=== PATIENT | male | born 1950 | race Caucasian/White ===

== ENCOUNTER → 2016-12-21 | Outpatient (CLI) | payer MEDICARE, OTHER | LOC: RAD 11:10 | PROVIDERS: ATTEND Family Medicine | DX: R29.898 Other symptoms and signs involving the musculoskeletal system (principal) | CPT/HCPCS: 72148 ==

== ENCOUNTER 2018-04-16 09:19 | Day surgery (SDC) | payer MEDICARE, OTHER ==
[~2018-04-16 09:19] MED LIST: BESIFLOXACIN HCL 0.6% OPH SUSP 5 ML BOTTLE OD PRN; CYCLOPENTOLATE 0.2%/PHENYLEPHRINE 1% OPH SOLN 2 ML OD PRN; KETOROLAC TROMETHAMINE 0.45% 4 DROP/0.4 ML DROPERETTE OD PRN; TETRACAINE HCL 0.5% OPH SOLN 2 ML OD PRN; TROPICAMIDE 1% OPH SOLN 3 ML OD PRN
[2018-04-16] MEDS ORDERED: CHONDR SU A NA/HYALUR INTRAOC KIT (SURGICARE) ONE (09:43)
[2018-04-16] MEDS ORDERED: LIDOCAINE 1% INJ-PF (10 MG/ML) 30 ML SDV ONE (09:43)
[2018-04-16] MEDS ORDERED: EPINEPHRINE INJ/PF 1 MG/1 ML AMPULE ONE (09:43)
[2018-04-16] MEDS: TETRACAINE HCL 0.5% OPH SOLN 2 ML OD PRN ×2 (10:28→11:06)
[2018-04-16] MEDS: CYCLOPENTOLATE 0.2%/PHENYLEPHRINE 1% OPH SOLN 2 ML OD PRN ×3 (10:29→11:00)
[2018-04-16] MEDS: TROPICAMIDE 1% OPH SOLN 3 ML OD PRN ×3 (10:29→11:00)
[2018-04-16] MEDS: BESIFLOXACIN HCL 0.6% OPH SUSP 5 ML BOTTLE OD PRN ×2 (10:30→10:45)
[2018-04-16] MEDS ORDERED: MIDAZOLAM 2 MG/2 ML INJ ONE ×2 (10:51)
[2018-04-16] MEDS ORDERED: LIDOCAINE 1%/PHENYLEPHRINE 1.5% 1 ML VIAL ONE (11:19)
--- NOTE | 2018-04-16 14:46 | [facility] OPERATIVE REPORT E ---
[facility] Operative Report NAME: MELE GARCIA AGE: 68Y DATE OF SURGERY: 04/16/2018 ROOM: PREOPERATIVE DIAGNOSIS: CATARACT, RIGHT EYE. POSTOPERATIVE DIAGNOSIS: CATARACT, RIGHT EYE. OPERATION: Cataract extraction with insertion of an IOL of the right eye. SURGEON: NIEVES WOODSON M.D. ANESTHESIA: Topical. PROCEDURE: After obtaining appropriate consent, the patient's right eye was prepped and draped in sterile fashion as well as the surgeon in a sterile manner and cataract surgery was started. First a paracentesis blade was used to make a side-port incision. Viscoelastic was used to inflate the anterior chamber. Next a 2.4 mm incision was made with a 2.4 mm blade, clear corneal temporally. A continuous capsulorrhexis was made using a cystotome and Utrata forceps. Following this hydrodissection was carried out to make the lens fully loose and mobile and it was rotated 90 degrees. Following this, a swmebp-krc-zqkbszf technique was used to phacoemulsify the lens with a CDE of 6.75. The remaining cortex was removed with irrigation/aspiration. Provisc was instilled into the capsular bag to inflate the bag. A SN60WF, 20.0 diopter lens was placed. The remaining viscoelastic material was removed with irrigation/aspiration. Following this, the incision was found to be watertight. Besivance was instilled into the eye and a protective shield was placed over the eye. The patient returned to the postoperative recovery in stable condition. DICTATING PHYSICIAN: NIEVES WOODSON M.D. [id number] PHY#: [id number] ID: [id number] JOB#: [id number] ACCT: [id number] cc:NIEVES WOODSON M.D. >
--- NOTE | 2018-04-16 14:48 | [facility] DISCHARGE SUMMARY E ---
[facility] Discharge Summary NAME: MELE GARCIA AGE: 68Y ADMITTED: 04/16/2018 DISCHARGED: 04/16/2018 FINAL DIAGNOSIS: Cataract, right eye. HOSPITAL COURSE: This is a 68-year-old male who underwent cataract extraction of the right eye. He underwent surgery because he was having difficulty seeing small print. DISCHARGE INSTRUCTIONS: He should be on a regular diet. No bending at his waist, no heavy lifting. He should use Besivance, Ilevro and Durezol at 3:00 p.m. and 8:00 p.m. Sleep with a rigid shield. I will see him for a 1-day postoperative tomorrow. DICTATING PHYSICIAN: NIEVES WOODSON M.D. [id number] PHY#: [id number] ID: [id number] JOB#: [id number] ACCT: [id number] cc:NIEVES WOODSON M.D. >
== END 2018-04-16 12:03 | disposition home or self-care (01) ==
LOC: SC 09:19
PROVIDERS: ATTEND Internal Medicine
DX: H25.13 Age-related nuclear cataract, bilateral (principal); H57.03 Miosis; I10 Essential (primary) hypertension; M19.90 Unspecified osteoarthritis, unspecified site; K21.9 Gastro-esophageal reflux disease without esophagitis; G47.30 Sleep apnea, unspecified; Z79.1 Long term (current) use of non-steroidal anti-inflammatories (NSAID); Z79.899 Other long term (current) drug therapy
CPT/HCPCS: 66984; V2632; J2250; J3490; A9270; J0171; J2370; 142

== ENCOUNTER 2018-05-16 07:10 | Day surgery (SDC) | payer MEDICARE, OTHER ==
[~2018-05-16 07:10] MED LIST changes: -BESIFLOXACIN HCL 0.6% OPH SUSP 5 ML BOTTLE OD PRN; -CYCLOPENTOLATE 0.2%/PHENYLEPHRINE 1% OPH SOLN 2 ML OD PRN; -KETOROLAC TROMETHAMINE 0.45% 4 DROP/0.4 ML DROPERETTE OD PRN; +KETOROLAC TROMETHAMINE 0.45% 4 DROP/0.4 ML DROPERETTE OS PRN; -TETRACAINE HCL 0.5% OPH SOLN 2 ML OD PRN; -TROPICAMIDE 1% OPH SOLN 3 ML OD PRN
[2018-05-16] MEDS ORDERED: CHONDR SU A NA/HYALUR INTRAOC KIT (SURGICARE) ONE (07:57)
[2018-05-16] MEDS ORDERED: LIDOCAINE 1% INJ-PF (10 MG/ML) 30 ML SDV ONE (07:57)
[2018-05-16] MEDS ORDERED: EPINEPHRINE INJ/PF 1 MG/1 ML AMPULE ONE (07:57)
[2018-05-16] MEDS: TETRACAINE HCL 0.5% OPH SOLN 2 ML OS PRN ×3 (08:09→08:48)
[2018-05-16] MEDS: TROPICAMIDE 1% OPH SOLN 3 ML OS PRN ×3 (08:10→08:33)
[2018-05-16] MEDS: CYCLOPENTOLATE 0.2%/PHENYLEPHRINE 1% OPH SOLN 2 ML OS PRN ×3 (08:10→08:33)
[2018-05-16] MEDS: BESIFLOXACIN HCL 0.6% OPH SUSP 5 ML BOTTLE OS PRN ×4 (08:11→09:13)
[2018-05-16] MEDS ORDERED: MIDAZOLAM 2 MG/2 ML INJ ONE (08:28)
[2018-05-16] MEDS ORDERED: LIDOCAINE 1%/PHENYLEPHRINE 1.5% 1 ML VIAL ONE (09:08)
--- NOTE | 2018-05-16 18:56 | [facility] DISCHARGE SUMMARY E ---
[facility] Discharge Summary NAME: MELE GARCIA AGE: 68Y ADMITTED: 05/16/2018 DISCHARGED: 05/16/2018 HOSPITAL COURSE: This is a 68-year-old male who underwent cataract extraction of the left eye. DIAGNOSIS: CATARACT, LEFT EYE. He underwent surgery because he was having difficulty with glare from headlights at night. DISCHARGE INSTRUCTIONS: He should be on a regular diet. No bending at his waist, no heavy lifting. He should use his Besivance, Ilevro, and Durezol at 3 p.m. and 8 p.m. and sleep with a rigid shield. I will see him for his 1 day postoperative tomorrow. DICTATING PHYSICIAN: NIEVES WOODSON M.D. [id number] PHY#: [id number] ID: [id number] JOB#: [id number] ACCT: [id number] cc:NIEVES WOODSON M.D. >
--- NOTE | 2018-05-16 18:56 | [facility] OPERATIVE REPORT E ---
[facility] Operative Report NAME: MELE GARCIA AGE: 68Y DATE OF SURGERY: 05/16/2018 ROOM: PREOPERATIVE DIAGNOSIS: CATARACT, LEFT EYE. POSTOPERATIVE DIAGNOSIS: CATARACT, LEFT EYE. OPERATION: Cataract extraction with insertion of an IOL of the left eye. SURGEON: NIEVES WOODSON M.D. ANESTHESIA: Topical. PROCEDURE: After obtaining appropriate consent, the patient's left eye was prepped and draped in sterile fashion as well as the surgeon in a sterile manner and cataract surgery was started. First a paracentesis blade was used to make a side-port incision. Viscoelastic was used to inflate the anterior chamber. Next a 2.4 mm incision was made with a 2.4 mm blade, clear corneal temporally. A continuous capsulorrhexis was made using a cystotome and Utrata forceps. Following this hydrodissection was carried out to make the lens fully loose and mobile and it was rotated 90 degrees. Following this, a aelbnr-hst-wszqdnc technique was used to phacoemulsify the lens with a CDE of 6.54. The remaining cortex was removed with irrigation/aspiration. Provisc was instilled into the capsular bag to inflate the bag. A SN60WF, 17.5 diopter lens was placed. The remaining viscoelastic material was removed with irrigation/aspiration. Following this, the incision was found to be watertight. Besivance was instilled into the eye and a protective shield was placed over the eye. The patient returned to the postoperative recovery in stable condition. DICTATING PHYSICIAN: NIEVES WOODSON M.D. [id number] PHY#: [id number] ID: [id number] JOB#: [id number] ACCT: [id number] cc:NIEVES WOODSON M.D. >
== END 2018-05-16 09:50 | disposition home or self-care (01) ==
LOC: SC 07:10
PROVIDERS: ATTEND Internal Medicine
DX: H25.12 Age-related nuclear cataract, left eye (principal); Z96.1 Presence of intraocular lens; I10 Essential (primary) hypertension; K21.9 Gastro-esophageal reflux disease without esophagitis; G47.30 Sleep apnea, unspecified; Z79.899 Other long term (current) drug therapy; Z79.1 Long term (current) use of non-steroidal anti-inflammatories (NSAID)
CPT/HCPCS: 66984; V2632; J2250; J3490; A9270; J0171; J2370; 142

== ENCOUNTER → 2020-01-27 | Outpatient (CLI) | payer MEDICARE, OTHER ==
--- NOTE | 2020-01-27 13:01 | RADIOLOGY REPORT (SQ) ---
EXAM DESCRIPTION: WRIST RIGHT 3 VIEWS COMPLETED DATE/TIME: 01/27/2020 12:46 pm REASON FOR STUDY: UNSP INJURY OF RIGHT WRIST, HAND AND FINGER(S), INIT ENCNTR S69.91XA UNSP INJURY OF RIGHT WRIST, HAND AND FINGER(S), INI COMPARISON: None. NUMBER OF VIEWS: Three views. TECHNIQUE: AP, lateral, and oblique radiographic images acquired of the right wrist. LIMITATIONS: None. FINDINGS: MINERALIZATION: Normal. BONES: No acute fracture or dislocation. No worrisome bone lesions. Normal alignment. SOFT TISSUES: No soft tissue swelling. No foreign body. OTHER: No other significant finding. IMPRESSION: 1. No acute osseous findings. If symptoms persist, additional imaging suggested to exc lude an underlying occult fracture. TECHNICAL DOCUMENTATION: JOB ID: [id number] 2010 [employer]- All Rights Reserved Reading location - IP/workstation name: [email or web address]
== END ==
LOC: OD 12:26
PROVIDERS: ATTEND Nurse Practitioner Family
DX: S69.91XA Unspecified injury of right wrist, hand and finger(s), initial encounter (principal); X58.XXXA Exposure to other specified factors, initial encounter